=== PATIENT | male | born 1955 | race Caucasian/White ===

== ENCOUNTER 2017-08-29 12:00 | Emergency (ER) | payer MEDICARE ==
[2017-08-29] MEDS ORDERED: NS 0.9% 1000 ML* 1,000 ML IV ONE (13:13)
--- NOTE | 2017-08-29 13:57 | RAD ---
Indication: Seizure. Strokelike symptoms. Dizziness. History of tobacco use. Comparison: April 21, 2015 CT. Technique: Upright AP 1328 hours Report: Mild prominence of interstitial markings. Linear consolidation at the LEFT base is most suspicious for atelectasis based on morphology with inflammatory infiltrate less likely. Negative for pleural effusion or pneumothorax. The heart, pulmonary vasculature, and mediastinal contours are unremarkable. IMPRESSION: Emphysema based on correlation with prior CT. Linear atelectasis at the LEFT lung base favored over inflammatory infiltrate. Negative for cardiomegaly or pulmonary edema.
[2017-08-29 14:00] LABS: Hematocrit 46 % (42-52); Hemoglobin 15.6 g/dl (14.0-18.0); Mean Corpuscular HGB Conc 34 g/dl (31-36); Mean Corpuscular Hemoglobin 33 pg (27-31); Mean Corpuscular Volume 97 fL (80-94); Mean Platelet Volume 8 um3 (7.4-10.4); Red Blood Count 4.78 10^6/ul (4.0-5.4); Red Cell Distribution Width 13 % (10.5-15); White Blood Count 6.5 10^3/ul (3.5-10.8)
[2017-08-29 14:02] VITALS: BP 119/75
[2017-08-29 14:16] LABS: Albumin 3.9 g/dL (3.2-5.2); BUN/Creatinine Ratio 14.3 (8-20); C Reactive Protein 7.53 mg/L (< 5.00); Calcium 9.4 mg/dL (8.6-10.3); EGFR African American 79.4 (>60); EGFR Non-African American 61.7 (>60); Globulin 3.6 g/dL (2-4); Magnesium 2.2 mg/dL (1.9-2.7); Potassium 4.2 mmol/L (3.5-5.0); Total Bilirubin 0.4 mg/dL (0.2-1.0); Total Protein 7.5 g/dL (6.4-8.9)
[2017-08-29 14:43] LABS: TSH (Thyroid Stimulating Horm) 0.93 mcIU/mL (0.34-5.60)
--- NOTE | 2017-08-29 15:10 | ED ---
Chris Le Angela, scribed for Ramesh Baltazar MD on 08/29/17 at 1446 . Neurological HPI - HPI Summary HPI Summary: This pt is a 61 y/o male presenting to [facility] for a possible seizure. Daughter reports the pt has been having episodes of shaking and subsequently falling down for the past 1 month. Daughter describes with his eyes open but not alert. Daughter reports he also become pale. - History of Current Complaint Chief Complaint: EDSeizure Stated Complaint: STROKE LIKE SYMPTOMS Time Seen by Provider: 08/29/17 14:42 Hx Obtained From: Patient Onset/Duration: Started weeks ago, Still Present Timing: Intermittent Episodes Lasting: - approx. 10 seconds Pain Intensity: 0 - Allergy/Home Medications Allergies/Adverse Reactions: Allergies Allergy/AdvReac Type Severity Reaction Status Date / Time No Known Allergies Allergy Verified 04/21/15 17:32 Home Medications: Home Medications Amitriptyline TAB* [Elavil TAB*] 150 mg PO BEDTIME 08/29/17 [History Confirmed 08/29/17] Aspirin EC Low Dose* [Ecotrin EC Low Dose 81 MG*] 81 mg PO DAILY 08/29/17 [ History Confirmed 08/29/17] Atorvastatin* [Lipitor*] 40 mg PO DAILY 08/29/17 [History Confirmed 08/29/17] Midodrine (NF) 5 mg PO TID 08/29/17 [History Confirmed 08/29/17] PARoxetine HCL TAB* [Paxil TAB*] 40 mg PO BEDTIME 08/29/17 [History Confirmed ] traMADol TAB* [Ultram*] 50 mg PO Q6HR PRN 08/29/17 [History Confirmed 08/29/17] PMH/Surg Hx/FS Hx/Imm Hx Endocrine/Hematology History: Denies: Hx Diabetes Cardiovascular History: Denies: Hx Congestive Heart Failure, Hx Hypertension, Hx Pacemaker/ICD Musculoskeletal History: Reports: Hx Back Problems Sensory History: Reports: Hx Contacts or Glasses Denies: Hx Hearing Aid Opthamlomology History: Reports: Hx Contacts or Glasses Psychiatric History: Reports: Hx Substance Abuse - 2005 PT CAME TO ED WANTING DETOX FROM PAIN MEDS Denies: Hx Panic Disorder - Surgical History Surgery Procedure, Year, and Place: HERNIA OPERATION ABOUT 40 YEARS AGO Infectious Disease History: No Infectious Disease History: Denies: Traveled Outside the [place] in Last 30 Days - Social History Alcohol Use: None Substance Use Type: Reports: None Smoking Status (MU): Heavy Every Day Tobacco Smoker Have You Smoked in the Last Year: Yes Review of Systems Negative: Fever, Chills All Other Systems Reviewed And Are Negative: Yes Physical Exam - Summary Physical Exam Summary: General: well-appearing, no pain distress Skin: warm, color reflects adequate perfusion, dry Head: normal Eyes: EOMI, TACO ENT: normal Neck: supple, nontender Respiratory: CTA, breath sounds present Cardiovascular: RRR Abdomen: soft, nontender Bowel: present Musculoskeletal: normal, strength/ROM intact Neurological: normal, sensory/motor intact, A&O x3 Psychological: affect/mood appropriate Triage Information Reviewed: Yes Vital Signs On Initial Exam: Initial Vitals Temp Pulse Resp BP Pulse Ox 98.2 F 106 18 110/72 99 08/29/17 12:01 08/29/17 12:01 08/29/17 12:01 08/29/17 12:01 08/29/17 12:01 Vital Signs Reviewed: Yes Diagnostics - Vital Signs Vital Signs Temp Pulse Resp BP Pulse Ox 08/29/17 14:10 96 08/29/17 14:00 80 27 94 08/29/17 13:06 80 26 119/75 92 08/29/17 13:00 80 19 93 08/29/17 12:24 89 23 97 08/29/17 12:01 98.2 F 106 18 110/72 99 - Laboratory Lab Results: Lab Results 08/29/17 08/29/17 08/29/17 Range/Units 13:41 13:41 13:41 WBC (3.5-10.8) 10^3/ul RBC (4.0-5.4) 10^6/ul Hgb (14.0-18.0) g/dl Hct (42-52) % MCV (80-94) fL MCH (27-31) pg MCHC (31-36) g/dl RDW (10.5-15) % Plt Count (150-450) 10^3/ul MPV (7.4-10.4) um3 Neut % (Auto) (38-83) % Lymph % (Auto) (25-47) % Antelope % (Auto) (1-9) % Eos % (Auto) (0-6) % Baso % (Auto) (0-2) % Absolute Neuts (auto) (1.5-7.7) 10^3/ul Absolute Lymphs (auto) (1.0-4.8) 10^3/ul Absolute Monos (auto) (0-0.8) 10^3/ul Absolute Eos (auto) (0-0.6) 10^3/ul Absolute Basos (auto) (0-0.2) 10^3/ul Absolute Nucleated RBC 10^3/ul Nucleated RBC % INR (Anticoag Therapy) 0.96 (0.77-1.02) APTT 27.5 (26.0-36.3) seconds Sodium 136 (133-145) mmol/L Potassium 4.2 (3.5-5.0) mmol/L Chloride 104 (101-111) mmol/L Carbon Dioxide 28 (22-32) mmol/L Anion Gap 4 (2-11) mmol/L BUN 17 (6-24) mg/dL Creatinine 1.19 H (0.67-1.17) mg/dL Est GFR ( Amer) 79.4 (>60) Est GFR (Non-Af Amer) 61.7 (>60) BUN/Creatinine Ratio 14.3 (8-20) Glucose 88 (70-100) mg/dL Lactic Acid 0.7 (0.5-2.0) mmol/L Calcium 9.4 (8.6-10.3) mg/dL Magnesium 2.2 (1.9-2.7) mg/dL Total Bilirubin 0.40 (0.2-1.0) mg/dL AST 17 (13-39) U/L ALT 20 (7-52) U/L Alkaline Phosphatase 69 (34-104) U/L Total Creatine Kinase 60 (10-223) U/L CK-MB (CK-2) 2.4 (0.6-6.3) ng/mL Troponin I 0.00 (<0.04) ng/mL C-Reactive Protein 7.53 H (< 5.00) mg/L Total Protein 7.5 (6.4-8.9) g/dL Albumin 3.9 (3.2-5.2) g/dL Globulin 3.6 (2-4) g/dL Albumin/Globulin Ratio 1.1 (1-3) TSH 0.93 (0.34-5.60) mcIU/mL //17 Range/Units 13:41 WBC 6.5 (3.5-10.8) 10^3/ul RBC 4.78 (4.0-5.4) 10^6/ul Hgb 15.6 (14.0-18.0) g/dl Hct 46 (42-52) % MCV 97 H (80-94) fL MCH 33 H (27-31) pg MCHC 34 (31-36) g/dl RDW 13 (10.5-15) % Plt Count 197 (150-450) 10^3/ul MPV 8 (7.4-10.4) um3 Neut % (Auto) 72.9 (38-83) % Lymph % (Auto) 15.2 L (25-47) % Antelope % (Auto) 10.4 H (1-9) % Eos % (Auto) 1.1 (0-6) % Baso % (Auto) 0.4 (0-2) % Absolute Neuts (auto) 4.7 (1.5-7.7) 10^3/ul Absolute Lymphs (auto) 1.0 (1.0-4.8) 10^3/ul Absolute Monos (auto) 0.7 (0-0.8) 10^3/ul Absolute Eos (auto) 0.1 (0-0.6) 10^3/ul Absolute Basos (auto) 0 (0-0.2) 10^3/ul Absolute Nucleated RBC 0 10^3/ul Nucleated RBC % 0.1 INR (Anticoag Therapy) (0.77-1.02) APTT (26.0-36.3) seconds Sodium (133-145) mmol/L Potassium (3.5-5.0) mmol/L Chloride (101-111) mmol/L Carbon Dioxide (22-32) mmol/L Anion Gap (2-11) mmol/L BUN (6-24) mg/dL Creatinine (0.67-1.17) mg/dL Est GFR ( Amer) (>60) Est GFR (Non-Af Amer) (>60) BUN/Creatinine Ratio (8-20) Glucose (70-100) mg/dL Lactic Acid (0.5-2.0) mmol/L Calcium (8.6-10.3) mg/dL Magnesium (1.9-2.7) mg/dL Total Bilirubin (0.2-1.0) mg/dL AST (13-39) U/L ALT (7-52) U/L Alkaline Phosphatase (34-104) U/L Total Creatine Kinase (10-223) U/L CK-MB (CK-2) (0.6-6.3) ng/mL Troponin I (<0.04) ng/mL C-Reactive Protein (< 5.00) mg/L Total Protein (6.4-8.9) g/dL Albumin (3.2-5.2) g/dL Globulin (2-4) g/dL Albumin/Globulin Ratio (1-3) TSH (0.34-5.60) mcIU/mL Result Diagrams: 08/29/17 13:41 08/29/17 13:41 Lab Statement: Any lab studies that have been ordered have been reviewed, and results considered in the medical decision making process. - Radiology Chest XR Xray Interpretation: Positive (See Comments) - IMPRESSION: Emphysema based on correlation with prior CT. Linear atelectasis at the LEFT lung base favored over inflammatory infiltrate. Negative for cardiomegaly or pulmonary edema. Dr. Baltazar has reviewed this radiology report. Radiology Interpretation Completed By: Radiologist Course/Dx - Course Course Of Treatment: Medications reviewed. Allergies noted. PATIENT REPORTS NORMAL BRAIN CT ON 08/25/17 AT [facility]. DISCUSSED RESULTS WITH PATIENT/ FAMILY. DISCUSSED WITH DR HALL, NEUROLOGY. WILL DISCHARGE PATIENT FROM ED. HE WILL GO DIRECTLY TO THE EEG CLINIC FROM THE ED. - Diagnoses Provider Diagnoses: Seizure-like activity Discharge - Discharge Plan Condition: Stable Disposition: HOME Patient Education Materials: New-Onset Seizure in Adults (ED) Referrals: Vira Dumont MD [Primary Care Provider] - Lu Dickens MD [Medical Doctor] - Additional Instructions: GO DIRECTLY TO THE EEG CLINIC UPON DISCHARGE. FOLLOW UP WITH YOUR DOCTOR. RETURN TO THE EMERGENCY DEPARTMENT FOR ANY WORSENING OF YOUR CONDITION OR QUESTIONS OR CONCERNS. The documentation as recorded by the Chris head Angela accurately reflects the service I personally performed and the decisions made by , Ramesh Baltazar MD.
[2017-08-29 15:29] LABS: Urine Bacteria Absent (Absent); Urine Bilirubin Negative (Negative); Urine Glucose Negative (Negative); Urine Nitrite Negative (Negative)
== END 2017-08-29 15:27 | disposition home or self-care (01) ==
LOC: ED 12:00
DX: R56.9 Unspecified convulsions (principal); F17.210 Nicotine dependence, cigarettes, uncomplicated
CPT/HCPCS: 36415; 71010; 80053; 81003; 81015; 82550; 82553; 83605; 83735; 84443; 84484; 85025; 85610; 85730; 86140; 87086; 93005; 96360; 99282

== ENCOUNTER 2019-07-07 16:15 | Emergency (ER) | payer MEDICARE ==
[2019-07-07 16:39] VITALS: BP 119/69
[2019-07-07] MEDS ORDERED: Acetaminophen TAB* 325 MG PO ONE (16:52)
--- NOTE | 2019-07-07 16:52 | UC ---
UC General HPI - HPI Summary HPI Summary: 63-year-old male comes in with a one-week complaint of not feeling well. Been having upper respiratory tract infection symptoms he's been having fevers. Son is here with family and reporting that the patient's been having a bad cough. The patient himself is awake and alert. He when asked denies symptoms of fevers or headaches or feeling ill. - History of Current Complaint Chief Complaint: UCGeneralIllness Stated Complaint: COUGH,DIZZINESS Time Seen by Provider: 07/07/19 16:26 Pain Intensity: 0 - Allergy/Home Medications Allergies/Adverse Reactions: Allergies Allergy/AdvReac Type Severity Reaction Status Date / Time No Known Allergies Allergy Verified 07/07/19 16:39 Home Medications: Home Medications Sertraline* [Zoloft*] 100 mg PO BEDTIME 07/07/19 [History Confirmed 07/07/19] PMH/Surg Hx/FS Hx/Imm Hx Previously Healthy: Yes Endocrine History: Dyslipidemia - Surgical History Surgical History: Yes Surgery Procedure, Year, and Place: HERNIA OPERATION ABOUT 40 YEARS AGO - Family History Known Family History: Positive: Non-Contributory - Social History Alcohol Use: None Substance Use Type: None Smoking Status (MU): Heavy Every Day Tobacco Smoker Type: Cigarettes Amount Used/How Often: 1 ppd Have You Smoked in the Last Year: Yes - Immunization History Most Recent Influenza Vaccination: UNK Most Recent Tetanus Shot: UNK Most Recent Pneumonia Vaccination: UNK Review of Systems All Other Systems Reviewed And Are Negative: Yes Constitutional: Positive: Fever, Chills, Other - SEE HPI Skin: Positive: Negative Eyes: Positive: Negative ENT: Positive: Nasal Discharge Respiratory: Positive: Cough Cardiovascular: Positive: Negative Gastrointestinal: Positive: Negative Motor: Positive: Negative Neurovascular: Positive: Negative Musculoskeletal: Positive: Negative Neurological: Positive: Negative Psychological: Positive: Negative Is Patient Immunocompromised?: No Physical Exam Triage Information Reviewed: Yes Appearance: No Pain Distress, Well-Nourished, Ill-Appearing - MILD Vital Signs: Initial Vital Signs Temp 104.2 F 07/07/19 16:28 Pulse 147 07/07/19 16:28 Resp 28 07/07/19 16:28 BP 119/69 07/07/19 16:28 Pulse Ox 91 07/07/19 16:28 Vital Signs Reviewed: Yes Eye Exam: Normal Eyes: Positive: Conjunctiva Clear ENT: Positive: Nasal congestion, Nasal drainage Neck: Positive: Supple Respiratory: Positive: Lungs clear, No respiratory distress Cardiovascular: Positive: Tachycardia Male Genital Exam: Positive: Other - Patient's pants are wet around the genital area patient reports that he urinated in his pants. Musculoskeletal: Positive: ROM Intact Neurological: Positive: Alert Psychological: Positive: Age Appropriate Behavior Skin Exam: Normal Diagnostics - EKG Cardiac Rate: Tachycardia - AT 1639 Cardiac Rhythm: Sinus: Normal - 135BPM Ectopy: None ST Segment: Normal Course/Dx - Course Course Of Treatment: Patient is tachycardic hypoxic and febrile. Most probable causes respiratory infection. Patient did urinate and his pants which could indicate a urinary tract infection. Patient and son declined ambulance transport they will go by POV. Patient was given acetaminophen 975 mg by mouth here in clinic. I discussed the case with a provider at the [place] emergency department. - Diagnoses Provider Diagnosis: Fever, Hypoxia, Tachycardia Discharge ED - Sign-Out/Discharge Documenting (check all that apply): Patient Departure All imaging exams completed and their final reports reviewed: No Studies - Discharge Plan Condition: Stable Disposition: HOME-RECOMMEND TO ED Referrals: Vira Dumont MD [Primary Care Provider] - Additional Instructions: GO DIRECTLY TO THE EMERGENCY DEPARTMENT FOR FURTHER EVALUATION AND CARE. - Billing Disposition and Condition Condition: STABLE Disposition: Home-Recommend to ED
== END 2019-07-07 17:00 | disposition home health service (06) ==
LOC: UCCORT 16:15
DX: R50.9 Fever, unspecified (principal); R05 Cough; R09.02 Hypoxemia; R00.0 Tachycardia, unspecified; F17.210 Nicotine dependence, cigarettes, uncomplicated
CPT/HCPCS: 93005; 99212; A9270-GY; G0463